=== PATIENT | male | born 1985 | race Caucasian/White ===

== ENCOUNTER 2019-12-14 19:39 | Observation (INO) | payer OTHER, SELFPAY ==
--- NOTE | ~2019-12-14 | CT_ITS ---
EXAMINATION: CT abdomen pelvis w con DATE: 12/14/2019 20:16 INDICATION: Abdominal pain TECHNIQUE: Computed tomography (CT) of the abdomen and pelvis was performed with 100 mL Omnipaque-350 intravenous contrast. Automated exposure control and iterative reconstruction technique were employe d. The dose-length product was 357.52 mGy-cm. COMPARISON: None FINDINGS: Lung bases are clear. Heart size is normal. No pericardial or pleural effusion. A few small calcified gallstones at the dependent fundus of the otherwise normal-appearing gallbladder. No calcified stone s seen along the normal caliber common bile duct. There is however mild intrahepatic biliary ductal d ilation. Liver is otherwise normal. Spleen, pancreas, bilateral adrenal glands and kidneys are normal . No abnormal bowel wall thickening or obstruction. Appendix is normal. Bladder is normal. No free i ntraperitoneal gas or fluid. No pathologically enlarged abdominal or pelvic lymphadenopathy. Mild fernanda ateral hip osteoarthritis IMPRESSION: 1. Cholelithiasis with mild intrahepatic biliary ductal dilation but no stones identified in the norm al caliber common bile duct. Correlate with liver function tests and if clinically indicated could co nsider further evaluation with MRCP. Reviewed, dictated and finalized at location A. ECT MANAGER IMPRESSION: 1. Cholelithiasis with mild intrahepatic biliary ductal dilation but no stones identified in the normal caliber common bile duct. Correlate with liver functio n tests and if clinically indicated could consider further evaluation with MRCP .
--- NOTE | ~2019-12-14 | XR_ITS ---
EXAMINATION: XR chest 1V portable DATE: 12/14/2019 20:06 INDICATION: Epigastric pain TECHNIQUE: AP view of the chest was obtained. COMPARISON: None FINDINGS: The lungs are clear with no focal airspace opacities, pulmonary edema, pleural effusion or pneumothor ax. The cardiomediastinal silhouette is normal. Visualized bones and soft tissues are unremarkable. IMPRESSION: 1. Normal chest radiograph. Reviewed, dictated and finalized at location A. RINTENDENT DRILLING IMPRESSION: 1. Normal chest radiograph.
[2019-12-14 19:45] VITALS: BP 156/100; PULSE 65; RESP 20; TEMP 36.6; O2SAT 100
--- NOTE | 2019-12-14 19:47 | ECG_ITS ---
Measurements Intervals [place] Rate: 62 P: 20 IA: 166 QRS: 69 QRSD: 101 T: 44 QT: 376 QTc: 383 Interpretive Statements SINUS RHYTHM WITH SINUS ARRHYTHMIA ATRIAL PREMATURE COMPLEXES INCOMPLETE RIGHT BUNDLE BRANCH BLOCK BASELINE ARTIFACT- I, II, III, AVR, AVL, AVF, V1-V2 BORDERLINE ECG Electronically Signed On 12-18-2019 13:27:38 GOVERNMENT GUARD by Arik Cheatham D.O.
--- NOTE | 2019-12-14 19:52 | ED.ABDPAIN ---
HPI - Abdominal Pain General Chief Complaint: Abdominal Pain Stated Complaint: epigastric pain Time Seen by Provider: 12/14/19 19:48 Source: patient and RN notes reviewed Mode of arrival: ambulatory Limitations: no limitations History of Present Illness HPI narrative: Pt is a 34 y/o male who presents to the ED with c/o severe epigastric pain starting suddenly around 18:30 this evening. He notes that his pain was initially a 10/10, but states that his pain alleviated to a 5/10 for a short while before worsening again to a 10/10. Pt notes that nothing in particular seemed to alleviate or re-aggravate his pain. He currently denies any fever, nausea, vomiting, or diarrhea. Pt states that he hasn't taken any pain medications for his symptoms. MD elicited complaint: abdominal pain Onset (ago): hour(s) (1.5) Pain Consistency: colicky Location: epigastric Severity: severe Pain scale (0-10): 10 Exacerbating factors: nothing Relieving factors: nothing Associated symptoms: denies other symptoms Related Data Home Medications Medication Instructions Recorded Confirmed omeprazole 40 mg PO BID 12/14/19 Allergies Allergy/AdvReac Type Severity Reaction Status Date / Time doxycycline Allergy Rash Verified 12/14/19 19:49 Review of Systems Review of Systems: All systems reviewed & are unremarkable except as noted in HPI and below Constitutional: Constitutional: Denies fever(s) Gastrointestinal: Gastrointestinal: Reports abdominal pain (epigastric pain), Denies diarrhea, Denies nausea and Denies vomiting PMFSH Past Medical History Medical History Healthy male adult Surgical History Surgical History No significant past surgical history Social History Social History Smoking status: Never smoker Gender identity (if verbalized by the patient): Male Exam Narrative: Exam Narrative: APPEARANCE: Moderate distress from pain, diaphoretic HEENT: Normocephalic, atraumatic, OMM RESPIRATORY: No respiratory distress, clear to auscultation bilaterally with no rhonchi wheezing or rales CARDIOVASCULAR: RRR s murmur ABDOMINAL: Soft, nondistended, tender palpation epigastric right upper quadrant left upper quadrant, no tenderness right lower quadrant left lower quadrant, no rebound or guarding MUSCULOSKELETAl: Moves all extremities. No clubbing, cyanosis or edema. NEURO: Awake and alert. Following commands, speech normal, no focal deficits SKIN:: Warm, dry. Normal Color PSYCHIATRIC: Normal affect/mood Course Course Emergency Course: Discussed with Dr. Cunningham presentation work-up. Discussed CT results. At this time recommends admission with patient started on Zosyn will follow as inpatient Discussed Dr. Ron from general surgery presentation work-up. Agrees with consult at this time with patient start on Zosyn will follow as inpatient Discussed with Dr. Dumont presentation work-up he agrees with admission at this time Discussed with patient and family results of workup and diagnosis. Discussed need for admission. Patient and family understand and agree to current treatment plan Vital Signs Vital signs: Vital Signs Temperature 97.8 F 12/14/19 19:45 Pulse Rate 65 12/14/19 19:45 Respiratory Rate 20 12/14/19 19:45 Blood Pressure 156/100 H 12/14/19 19:45 Pulse Oximetry 100 12/14/19 19:45 Temperature 97.8 F 12/14/19 19:45 Pulse Rate 77 12/14/19 21:55 Respiratory Rate 18 12/14/19 21:55 Blood Pressure 156/98 H 12/14/19 21:55 Pulse Oximetry 98 12/14/19 21:55 MDM - Abdominal Pain Lab Data Result diagrams: 12/14/19 20:03 12/14/19 20:09 Labs: Lab Results 12/14/19 12/14/19 12/14/19 Range/Units 20:03 20:03 20:09 WBC 7.8 (4.5-10.0) K/mm3 RBC 5.16 (4.6-6.20) M/mm3 Hgb 16.6 (14.0-18.0) g/dL Hct 46.0 (42.0-5
[2019-12-14 20:08] LABS: Basophils Absolute Auto 0.1 K/mm3 (0.0-0.1); Basophils Percent Auto 0.8 % (0.2-1.2); Eosinophils Absolute Auto 0.4 K/mm3 (0-0.3); Eosinophils Percent Auto 4.6 % (0-4.4); Hemoglobin 16.6 g/dL (14.0-18.0); Immature Granulocyte Absolute 0.03 K/mm3 (0.00-0.031); Immature Granulocyte Percent A 0.4 % (0-0.5); Lymphocytes Absolute Auto 2.95 K/mm3 (0.9-3.2); Lymphocytes Percent Auto 37.9 % (18.3-44.2); Mean Corpuscular HGB Conc 36.1 g/dl (32-36); Mean Corpuscular Hemoglobin 32.2 pg (26-34); Mean Corpuscular Volume 89.1 fl (80-100); Mean Platelet Volume 9.7 fl (7.4-10.4); Monocytes Percent Auto 13.1 % (2.6-8.5); Neutrophils Absolute Auto 3.4 K/mm3 (1.3-6.7); Neutrophils Percent Auto 43.2 % (45.5-73.1); Platelet Count Result 297 k/mm3 (150-375); Red Blood Count 5.16 M/mm3 (4.6-6.20); Red Cell Distribution Width 11.8 % (11.5-14.5); White Blood Count 7.8 K/mm3 (4.5-10.0)
[2019-12-14 20:11] LABS: Blood Urea Nitrogen 10 mg/dL (8-26); Estimated Glomerular Filt Rate > 60
[2019-12-14] MEDS: ONDANSETRON INJ 4 MG/2 ML VIAL IV PUSH (20:18)
[2019-12-14] MEDS: LACTATED RINGERS 1,000 ML 999 ML IV CONT (20:18)
[2019-12-14] MEDS: MORPHINE SULFATE 4 MG/ML INJ IV PUSH ×2 (20:18→23:57)
[2019-12-14 20:22] LABS: Alanine Aminotransferase 52 U/L (4-50); Albumin Level 5.1 g/dL (3.5-5.1); Alkaline Phosphatase 91 U/L (38-126); Aspartate Amino Transferase 93 U/L (17-59); Bilirubin,Total 1.9 mg/dL (0.2-1.3); Blood Urea Nitrogen 11 mg/dL (9-20); Calcium 9.4 mg/dL (8.4-10.2); Carbon Dioxide 30 mmol/L (22-30); Chloride 100 mmol/L (98-107); Estimated Glomerular Filt Rate > 60; Glucose 117 mg/dL (75-110); Lipase 80 U/L (23-300); Potassium 3.9 mmol/L (3.4-5.0); Sodium 143 mmol/L (137-145)
[2019-12-14 20:33] LABS: Troponin I < 0.012 ng/mL (0.000-0.034)
[2019-12-14] MEDS: BELLADONNA ALK/PHENOB ELIX 10 ML, MAG HYDROX/ALUMINUM HYD/SIMETH 30 ML, LIDOCAINE HCL 2... PO (20:58)
[2019-12-14 21:29] LABS: Add Urine Microscopic? NO; Appearance Urine Clear (Clear); Bilirubin Urine Negative (Negative); Blood Urine Negative (Negative); Color Urine Straw (Yellow); Glucose Urine UA Negative (Negative); Ketones Urine Negative (Negative); Leukocyte Esterase Ur Negative LEU/UL (Negative); Nitrate Urine Negative (Negative); Protein Urine Negative (Negative); Specific Grav Ur 1.029 (1.001-1.035); Urobilinogen Urine Negative mg/dL (<2.0)
[2019-12-14 21:55] VITALS: BP 156/98; PULSE 77; RESP 18; O2SAT 98
--- NOTE | 2019-12-14 23:15 | ADMGEN ---
This patient, Jayden Benoit, was admitted to [facility] Surg Room 303-01. Patient/family oriented to hospital policies and general routines including ID bracelet, bed and alarms, visiting hours, pain management, procedures, bathroom and other care routines, personal items, smoking policy, room service/diet, and visiting hours. Valuables list has been completed. Information on how to activate the Rapid Response Team has been discussed. Patient/Family are encouraged to report perceived risks to care and to ask questions if they do not understand what they are told or what they should do.
[2019-12-14 23:21] VITALS: BMI 22.4
[2019-12-14 23:22] VITALS: BP 135/92; PULSE 58; RESP 18; TEMP 36.9; O2SAT 99
[2019-12-14] MEDS: LACTATED RINGERS 1,000 ML 125 ML IV CONT (23:26)
--- NOTE | 2019-12-14 23:45 | PM.IMHP ---
H&P: HPI History of Present Illness Chief complaint: epigastric pain that started tonight+ Narrative: This is a 34 year old male who presented to the hospital [facility] with a complaint of severe epigastric pain that started this evening around 6:30 pm. The patient's last meal was bout 4 hours previously and consisted of greasy food from the restaurant [employer]. The patient is known to have GERD and takes omeprazole daily and believed initially that his abdominal pain was GERD until it worsened and wouldn't go away. He denies any fever, chills, nausea, vomiting, chest pain, diarrhea or other symptoms. [facility] demonstrated cholelithiasis with mild intrahepatic biliary ductal dilation. General Surgery was consulted by ER provider and has asked that we admit the patient to the hospital for them and they will evaluat the patient in the morning. No other complaints. His pain has improved significantly with morphine. No other complaints. Review of Systems Review of Systems: All systems reviewed & are unremarkable except as noted in HPI and below PMFSH Past Medical History Medical History (Updated 12/15/19 @ 04:41 by Manoj Dumont MD) GERD (gastroesophageal reflux disease) Healthy male adult Hypothyroidism Surgical History Surgical History No significant past surgical history Family History Family History Father Hypertension Social History Social History Smoking status: Never smoker Alcohol intake: never Substance use: never Substance use type: does not use Gender identity (if verbalized by the patient): Male Spiritual care concerns: No Agree to blood products: Yes Meds Home Medications and Allergies Home Medications Medication Instructions Recorded Confirmed Type omeprazole 40 mg PO BID 12/14/19 12/15/19 History levothyroxine 100 mcg PO DAILY 12/15/19 12/15/19 History Allergies Allergy/AdvReac Type Severity Reaction Status Date / Time doxycycline Allergy Rash Verified 12/14/19 19:49 Vital Signs Vital Signs - 24 hr 12/14/19 19:45 12/14/19 21:55 12/14/19 23:22 Temperature 36.6 C 36.9 C Pulse Rate 65 77 58 L Respiratory Rate 20 18 18 Blood Pressure 156/100 H 156/98 H 135/92 H Pulse Oximetry 100 98 99 Exam Const: General: cooperative, healthy appearing, no acute distress, alert and awake Nutritional Appearance: well nourished Orientation/consciousness: patient oriented x3 HENMT: Head: normal to inspection General nose exam: Normal external nose present Face and sinus: normal facial exam Mouth: Yes Normal oral and palatal mucosa present and Yes oropharynx normal Eyes: Pupils: Equal, round and reactive pupils present EOM: EOMs intact bilaterally Neck: Neck: supple and no JVD Thyroid: thyroid normal Lymphatic: lymphadenopathy not noted Resp: Effort & Inspection: normal respiratory effort Auscultation: clear to auscultation bilaterally Cardio: Rate: regular rate Rhythm: regular rhythm Heart sounds: no murmurs GI: Inspection: normal to inspection GI Palp: Yes abdominal tenderness (Epigastric++ ) Auscultation: normal bowel sounds Skin: General skin exam: normal color and no rashes or lesions noted Neuro: General: patient oriented x3 Cranial nerves: Yes CN's II-XII intact bilaterally and Yes Equal, round and reactive pupils present Speech: normal speech Motor exam (neuro): 5/5 motor strength present throughout Sensory Exam: normal sensation Extrem: General: normal to inspection and no edema Psych: Mental Status: mental status grossly normal Affect: normal affect H&P: Results Labs Labs: Short CBC 12/14/19 Range/Units 20:03 WBC 7.8 (4.5-10.0) K/mm3 Hgb 16.6 (14.0-18.0) g/dL Hct 46.0 (42.0-52.0) % Plt Count 297 (150-375) k/mm3 BMP
[2019-12-15 06:00] VITALS: BP 120/69; PULSE 57; RESP 16; TEMP 36.4; O2SAT 100
--- NOTE | 2019-12-15 07:39 | PM.CNGS ---
Assessment and Plan Assessment and plan (1) Dilated intrahepatic bile duct: Code(s): K83.8 - Other specified diseases of biliary tract Status: Acute Assessment and Plan: Discussed with Dr. Cunningham. Since patient's liver function tests are improved will cancel HIDA scan and plan to let patient try liquids. If he does well consider discharge and I have tentatively set him up for outpatient laparoscopic cholecystectomy with possible cholangiogram for Monday12/17/2019. Would probably repeat liver function tests as he returns that day and do cholangiogram if they are more elevated. (2) Cholelithiasis: Onset Date: Unknown Code(s): K80.20 - Calculus of gallbladder without cholecystitis without obstruction Status: Acute Assessment and Plan: Appears to have small calcified stones in the gallbladder. Since there was no stranding around the gallbladder and no gallbladder wall thickening on CT, I suspect that he does not have acute cholecystitis, but rather is passing small stones in view of the dilated common bile duct. He is now pain-free so we will plan to semi urgently to proceed to surgical intervention for removal of his gallbladder. Will plan to repeat liver function tests the day of surgery and if they are elevated consider intraoperative cholangiogram to prove whether not there are any gallstones present within the bile duct. I have discussed this thoroughly with the patient. Risks, benefits, possible complications including bleeding, infection, possible injury to surrounding organs, possible need for open cholecystectomy, have been discussed with the patient and he seems understand wished to proceed. (3) Transaminitis: Code(s): R74.0 - Nonspecific elevation of levels of transaminase and lactic acid dehydrogenase [LDH] Status: Acute Assessment and Plan: Most likely secondary to passage of small gallstones through the distal common bile duct and sphincter of Oddi. (4) GERD (gastroesophageal reflux disease): Qualifiers: Esophagitis presence: esophagitis presence not specified Qualified Code(s): K21.9 - Gastro-esophageal reflux disease without esophagitis Code(s): K21.9 - Gastro-esophageal reflux disease without esophagitis Status: Chronic Assessment and Plan: Longstanding, patient knows he had and this new pain feels different than what he has had the last 2 episodes overnight. He is chronically on Prilosec & will continue this. Should probably see Dr. Cunningham and consider upper GI endoscopy as an outpatient after he recovers from his laparoscopic cholecystectomy. (5) Hypothyroidism: Code(s): E03.9 - Hypothyroidism, unspecified Status: Chronic Assessment and Plan: On medication and has had stable follow-up labs 1 year ago. History of Present Illness Consult details Consult date: 12/15/19 Reason for consult: gallstones Narrative: This is a 34 year old White male who presented to the hospital last night with a complaint of severe epigastric pain that started last evening around 6:30 pm. The patient's last meal was bout 4 hours previously and consisted of greasy food from the restaurant [employer] . The patient is known to have GERD and takes omeprazole daily and believed initially that his abdominal pain was GERD until it worsened and wouldn't go away. He denies any fever, chills, nausea, vomiting, chest pain, diarrhea or other symptoms. Abd/Pelvic CT was performed in the ER and demonstrated cholelithiasis without GB wall thickening or surrounding stranding, but with mild intrahepatic biliary ductal dilation. It was also note the the LFT's were elevated on his lab work. GI was first consulted and the I was also contatcted by the ER provider. The Hospitalist admited the patient to the hospital. Further labs were ordered and GI will evaluate the patient this morning for possible MRCP to check for CBD stones. No other complaints. Hi
--- NOTE | 2019-12-15 07:39 | WPDGICN ---
Assessment and Plan Additional Plan This is a 34-year-old white male patient I am asked to see at the request of the emergency room. Patient has a long history of GE reflux. Has been on proton pump inhibitor use regularly since 2016. Last evening developed significant epigastric pressure. Became very intense prompting him to go to the emergency room. He had recurrent pain after admission the hospital approximately midnight last night. He states this pain is quite different from previous GE reflux symptoms. It is more of a pressure pain rather than a burning pain. Not related to diet or intake. In the emergency room CT scan suggested gallstones. LFTs were modestly elevated last evening. Past medical history is significant for GE reflux disease. In 2016 he had a food impaction that passed spontaneously. He has never had an EGD. Since that time he has been maintained on omeprazole fairly regularly perhaps every other day. He denies any weight loss or bleeding. Usually has a good response to this medication. Last evening at it made no difference in his pain. Family history noncontributory. Medications include omeprazole. And levothyroxine. No stated drug allergies. Physical exam reveals the patient currently to be alert. Vital signs stable. HEENT exam unremarkable. He is anicteric. Lungs are clear to auscultation and percussion. Heart is without murmur or extra sounds. Abdominal exam bowel sounds are present soft nontender with no organomegaly. CT scan reveals gallstones. LFTs total bilirubin 1.9, AST 92, ALT 52, alk-phos 91 CBC within normal limits. Urinalysis with no bilirubin. Impression 1. Epigastric pain. 2. Elevated LFTs. Suspect this is from septum and gallstones. Plan is for surgery consultation. HIDA scan will be obtained. LFTs will be repeated. If they rise in MRCP may be required. Anticipate eventual cholecystectomy. I would defer ERCP unless MRCP is abnormal. 3. Cholelithiasis. Identified by CT scan. I suspect this is most likely etiology for his discomfort. 4. GERD. This appears to be chronic. He has a history of a food impaction in the plastic. He continues to require proton pump inhibitors regularly plan is for elective outpatient EGD. Plan is initially for HIDA scan and surgery consult. Anticipate cholecystectomy per their direction. LFTs will be monitored. Outpatient EGD to assess GE reflux disease anticipated. We will continue proton pump inhibitor. GI Consult Note Consult date/time: 12/15/19 07:39 HPI: Jayden Benoit is a 34 year old male [facility] Past Medical History Medical History (Updated 12/15/19 @ 04:41 by Manoj Dumont MD) GERD (gastroesophageal reflux disease) Healthy male adult Hypothyroidism Surgical History Surgical History No significant past surgical history Family History Family History Father Hypertension Social History Social History Smoking status: Never smoker Alcohol intake: never Substance use: never Substance use type: does not use Gender identity (if verbalized by the patient): Male Spiritual care concerns: No Agree to blood products: Yes Meds Home Medications and Allergies Home Medications Medication Instructions Recorded Confirmed Type omeprazole 40 mg PO BID 12/14/19 12/15/19 History levothyroxine 100 mcg PO DAILY 12/15/19 12/15/19 History Allergies Allergy/AdvReac Type Severity Reaction Status Date / Time doxycycline Allergy Rash Verified 12/14/19 19:49 Vital Signs Vital Signs - 24 hr 12/14/19 19:45 12/14/19 21:55 12/14/19 23:22 Temperature 36.6 C 36.9 C Pulse Rate 65 77 58 L Respiratory Rate 20 18 18 Blood Pressure 156/100 H 156/98 H 135/92 H Pulse Oximetry 100 98 99 12/15/19 06:00 Temperature 36.4 C Pulse Rate 57 L Re
[2019-12-15 08:10] LABS: Basophils Percent Auto 0.7 % (0.2-1.2); Eosinophils Absolute Auto 0.3 K/mm3 (0-0.3); Eosinophils Percent Auto 4.2 % (0-4.4); Hematocrit 40.5 % (42.0-52.0); Hemoglobin 14.5 g/dL (14.0-18.0); Immature Granulocyte Absolute 0.02 K/mm3 (0.00-0.031); Immature Granulocyte Percent A 0.3 % (0-0.5); Lymphocytes Absolute Auto 1.32 K/mm3 (0.9-3.2); Lymphocytes Percent Auto 21.9 % (18.3-44.2); Mean Corpuscular HGB Conc 35.8 g/dl (32-36); Mean Corpuscular Volume 89.4 fl (80-100); Mean Platelet Volume 9.5 fl (7.4-10.4); Monocytes Absolute Auto 0.9 K/mm3 (0.1-0.6); Monocytes Percent Auto 14.8 % (2.6-8.5); Neutrophils Absolute Auto 3.5 K/mm3 (1.3-6.7); Neutrophils Percent Auto 58.1 % (45.5-73.1); Platelet Count Result 226 k/mm3 (150-375); Red Blood Count 4.53 M/mm3 (4.6-6.20); Red Cell Distribution Width 11.9 % (11.5-14.5)
[2019-12-15 08:17] LABS: Alanine Aminotransferase 105 U/L (4-50); Albumin Level 3.9 g/dL (3.5-5.1); Alkaline Phosphatase 84 U/L (38-126); Aspartate Amino Transferase 94 U/L (17-59); Bilirubin,Total 1.6 mg/dL (0.2-1.3)
[2019-12-15 08:18] LABS: Alanine Aminotransferase 106 U/L (4-50); Albumin Level 3.9 g/dL (3.5-5.1); Alkaline Phosphatase 82 U/L (38-126); Aspartate Amino Transferase 92 U/L (17-59); Bilirubin,Total 1.6 mg/dL (0.2-1.3); Blood Urea Nitrogen 9 mg/dL (9-20); Calcium 8.7 mg/dL (8.4-10.2); Carbon Dioxide 30 mmol/L (22-30); Chloride 104 mmol/L (98-107); Estimated CRCL calculation 149 ml/min; Estimated Glomerular Filt Rate > 60; Glucose 89 mg/dL (75-110); Lipase 61 U/L (23-300); Potassium 4.1 mmol/L (3.4-5.0); Sodium 139 mmol/L (137-145)
[2019-12-15] MEDS: LACTATED RINGERS 1,000 ML 125 ML IV CONT (08:48)
--- NOTE | 2019-12-15 18:54 | PM.DS ---
DS: Diagnosis Admitting Diagnosis Admitting Diagnosis: Calculus of gallbladder without cholecystitis without obstruction Discharge Diagnosis (1) Cholelithiasis: Onset Date: Unknown Code(s): K80.20 - Calculus of gallbladder without cholecystitis without obstruction Status: Acute Assessment and Plan: Date of Service 12/15/19 Mr. Benoit is a 34yo M with history of GERD and hypothyroidism who presented to the ED for evaluation of abrupt onset epigastric pain. CT abdomen showed cholelithiasis with mild intrahepatic biliary ductal dilation, no stones identified on CT. GI and General Surgery were consulted. His pain was intermittent but would last for a few hours. He was kept overnight for observation. AST, ALT, and bilirubin were elevated and felt to be secondary to cholelithiasis. His pain was improved the following morning. Discussed case with Dr Ron who planned for discharge and outpatient surgery already scheduled for Monday12/17/19. He tolerated a clear liquid diet and was hemodynamically stable for discharge 12/15/19. Consultations: General Surgery - Dr Ron GI - Dr Cunningham (2) Transaminitis: Code(s): R74.0 - Nonspecific elevation of levels of transaminase and lactic acid dehydrogenase [LDH] Status: Acute Assessment and Plan: Cholestatic pattern of transaminitis likely secondary to acute cholelithiasis. Monitor LFTs outpatient. (3) Dilated intrahepatic bile duct: Code(s): K83.8 - Other specified diseases of biliary tract Status: Acute Assessment and Plan: See above. (4) Hypothyroidism: Code(s): E03.9 - Hypothyroidism, unspecified Status: Chronic Assessment and Plan: Maintained on home levothyroxine. (5) GERD (gastroesophageal reflux disease): Qualifiers: Esophagitis presence: esophagitis presence not specified Qualified Code(s): K21.9 - Gastro-esophageal reflux disease without esophagitis Code(s): K21.9 - Gastro-esophageal reflux disease without esophagitis Status: Chronic Assessment and Plan: Maintained on Protonix. DS: Summary Time Spent with Patient Time attestation: Total time spent providing and/or coordinating discharge services: 35 minutes Exam Narrative: Exam Narrative: General: Male resting supine in bed in no acute distress. HEENT: Normocephalic, EOMI, oral mucosa moist. Cardiovascular: Rate and rhythm are regular. Respiratory: Lungs clear to auscultation all [place]. Non-labored breathing. Abdomen: Soft, mild epigastric tenderness to palpation without guarding, non-distended, bowel sounds present. Extremities: Peripheral pulses intact. No edema, erythema, or pain to palpation. Neuro: No focal neurological deficits. Speech is clear. DS: Data Data Completed and Pending Labs on day of discharge: Labs from last 24 hours 12/15/19 12/15/19 12/15/19 07:59 07:59 07:59 WBC 6.0 RBC 4.53 L Hgb 14.5 Hct 40.5 L MCV 89.4 MCH 32.0 MCHC 35.8 RDW 11.9 Plt Count 226 MPV 9.5 Immature Gran % (Auto) 0.3 Neut % (Auto) 58.1 Lymph % (Auto) 21.9 [place] % (Auto) 14.8 H Eos % (Auto) 4.2 Baso % (Auto) 0.7 Lymph # (Auto) 1.32 [place] # (Auto) 0.9 H Eos # (Auto) 0.3 Baso # (Auto) 0.0 Abs Immat Gran (auto) 0.02 Absolute Neuts (auto) 3.5 Absolute Nucleated RBC 0.0 Nucleated RBC % 0.0 Sodium 139 Potassium 4.1 Chloride 104 Carbon Dioxide 30 BUN 9 Creatinine 0.70 Estim Creat Clear Calc 149 Estimated GFR > 60 Glucose 89 Calcium 8.7 Total Bilirubin 1.6 H 1.6 H Direct Bilirubin 0.0 AST 94 H 92 H ALT 105 H 106 H Alkaline Phosphatase 84 82 Troponin I Total Protein 7.0 7.0 Albumin 3.9 3.9 Lipase 61 Urine Color Urine Appearance Urine pH Ur Specific [place] Urine Protein Urine Glucose (UA) Ur
== END 2019-12-15 12:40 | disposition home or self-care (01) ==
LOC: ANHED 22:40 → ANH3MEDSUR 22:44
PROVIDERS: Internal Medicine Gastroenterology; Admitting Provider Family Medicine; Emergency Provider Emergency Medicine; Visit Provider Family Medicine
DX: K80.20 Calculus of gallbladder without cholecystitis without obstruction (principal); K83.8 Other specified diseases of biliary tract; R74.0 Nonspecific elevation of levels of transaminase and lactic acid dehydrogenase [LDH]; K21.9 Gastro-esophageal reflux disease without esophagitis; E03.9 Hypothyroidism, unspecified
CPT/HCPCS: 36415; 71045; 74177; 80053; 80076; 81003; 82248; 83690; 84484; 85025; 93005; 96361; 96365; 96374; 96375; 96376; 99285; A9270; G0378; J0131; J2270; J2405; J2543; J7120; Q9967

== ENCOUNTER 2019-12-17 00:44 | Day surgery (SDC) | payer OTHER, SELFPAY ==
[2019-12-16 08:47] VITALS: BMI 22.5
[2019-12-17] VITALS (8 sets, daily range): BP systolic 110–133; BP diastolic 57–88; PULSE 54–75; RESP 14–18; TEMP 36.9–37.3; O2SAT 94–100
--- NOTE | ~2019-12-17 | XR_ITS ---
EXAMINATION: XR cholangiogram surg 1st inj EXAM DATE: 12/18/2019 06:36 INDICATION: Cholecystectomy. TECHNIQUE: Multiples Cine fluoroscopic images were obtained during injection of the cystic duct duri ng laparoscopic cholecystectomy. Procedure performed by Dr. Carlos Eduardo Ron MD on 12/18/2019 06:3 6. The DAP for this procedure was 1.6 mGym2. FINDINGS: The cystic duct has been injected. There are 3 or 4 small filling defects identified with in the cystic duct, could be gas bubbles or possibly choledocholithiasis. No obstructing stones. Mild common and proper hepatic duct dilation. Forward flow of contrast confirmed into the duodenum. Cont rast extravasation is most likely from the injection site. IMPRESSION: Several small cystic duct filling defects, stones or gas bubbles. Mild bile duct dilation . Reviewed, dictated and finalized at location A. 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 M ild bile duct dilation.
[2019-12-17] MEDS: LACTATED RINGERS 1,000 ML 30 ML IV CONT ×2 (11:45→15:44)
--- NOTE | 2019-12-17 11:58 | WPDANESEPPF ---
Anes - Initial Pre Proc Eval Procedure: Operation Date: 12/17/19 13:00 Proposed Procedures p Laparoscopic Cholecystectomy, Possible Intra Operative Cholangiograms, Possible Open - Carlos Eduardo Ron MD Date/Time: 12/17/19 11:58 Surgeon: Carlos Eduardo Ron MD Pre Op Diagnosis: cholelithiasis Patient Data Age: 34 Gender: M Height: 1.93 m Weight: 84 kg Allergies Allergy/AdvReac Type Severity Reaction Status Date / Time doxycycline Allergy Rash Verified 12/16/19 08:36 Home Medications Medication Instructions Recorded Confirmed Type omeprazole 20 mg PO BID 12/14/19 12/16/19 History hydrocodone-acetaminophen [[place]] 1 tablet PO Q6H PRN #10 tablet 12/15/19 12/16/19 Rx levothyroxine 100 mcg PO DAILY 12/15/19 12/16/19 History Laboratory Tests 12/17/19 11:38 Total Bilirubin Pending Direct Bilirubin Pending AST Pending ALT Pending Alkaline Phosphatase Pending Total Protein Pending Albumin Pending Amylase Pending Lipase Pending Patient hx anesthesia problems: none Family hx anesthesia problems: none PMFSH Past Medical History Medical History (Updated 12/15/19 @ 07:46 by Carlos Eduardo Ron MD) GERD (gastroesophageal reflux disease) Healthy male adult Hypothyroidism Surgical History Surgical History (Updated 12/15/19 @ 12:25 by Carlos Eduardo Ron MD) No significant past surgical history tonsilectomy,2017 Social History Social History Smoking status: Never smoker Alcohol intake: never Substance use: never Substance use type: does not use Gender identity (if verbalized by the patient): Male Spiritual care concerns: No Agree to blood products: Yes Anes - Eval Final PreProcedure Day of Procedure 12/17/19 11:58 Patient weight: normal Heart: regular rate and rhythm Lungs: clear to auscultation and normal air movement Airway: Mallampati scale class 1 Neurological: alert and oriented Last oral intake: >/= 8 hours ASA classification: II Emergent: no Anesthetic plan: proceed Anesthesia type and monitoring: general ETT and standard monitoring Informed Consent: The patient's anesthetic plan and its attendant risks and benefits were discussed with the patient/family/POA. Questions were solicited and answers provided to the satisfaction of the patient/family/POA.
--- NOTE | 2019-12-17 12:00 | SUR.PREOP ---
1110-STATES NO CHANGE SINCE INTERVIEW.
[2019-12-17 12:10] LABS: Alanine Aminotransferase 62 U/L (4-50); Albumin Level 4.5 g/dL (3.5-5.1); Alkaline Phosphatase 79 U/L (38-126); Amylase 68 U/L (30-110); Aspartate Amino Transferase 28 U/L (17-59); Bilirubin,Total 1.6 mg/dL (0.2-1.3); Lipase 49 U/L (23-300)
--- NOTE | 2019-12-17 12:51 | WPDHPUPDATE1 ---
History and Physical Update Update Date/Time: 12/17/19 12:51 History and Physical has been reviewed, including an updated exam of the patient. There are changes in the patient's condition as reflected in his discharge note from 12/15/2019. He went home this weekend has had no further episodes of pain or upper abdominal pain since he went home. Risks, benefits, and alternatives of a laparoscopic cholecystectomy with intraoperative cholangiogram possible open cholecystectomy have been discussed and questions answered. Patient agrees to proceed with procedure.
[2019-12-17] MEDS: ceFAZolin 2 GM/D5W 50 ML 2 GM/50 ML BAG IVPB (13:50)
[2019-12-17] MEDS: BUPIVACAINE/EPINEPHRINE 0.5% 30 ML VIAL 17 ML INFILTRATE (14:06)
[2019-12-17] MEDS: KETOROLAC 30 MG/ML VIAL (*BKC) IV PUSH (15:15)
--- NOTE | 2019-12-17 15:32 | P.OP_ITS ---
Procedure Note - Detailed Date of procedure: 12/17/19 Pre-op diagnosis: cholelithiasis 1. Cholelithiasis with cholecystitis 2. Possible choledocholithiasis by CT on 12/13/2019. Post-op diagnosis: same Procedure performed: Laparoscopic cholecystectomy with intraoperative cholangiogram. Description of procedure: Procedure Details: Patient was seen preoperatively in the holding area and risks, benefits and alternatives confirmed. Patient was taken to the operating room and general anesthesia was induced. A time out was then preformed with the surgery team confirming patient and site of surgery. The abdomen was prepped and draped in the usual sterile fashion. Incision was made just below the umbilicus. Two stay sutures of O- Vicryl were used to elevate the mid-line fascia beneath the umbilicus and a small incision was made under direct vision. The peritoneum was entered. The 12 mm Reyes cannula was introduced under direct vision. First under low flow and then under high flow the abdomen was insufflated with carbon dioxide never exceeding a pressure of 14. Three 5 mm trocars were then introduced under direct vision. The following trocars were introduced under direct vision: a 5 mm in the epigastrium and two 5 mm trocars along the right costal margin. Minor adhesions near the triangle of Calot were taken down with scissors and then the triangle was carefully dissected to expose the cystic duct and cystic artery. The gall bladder was grasped and the cystic duct and artery were dissected free and clipped with an 5 mm endo-clip chief ultrasound technologist. A small hole was made in the cystic duct with endoshears and a cholagio-cath introduced. A cholangiogram was obtained revealing free flow into the cystic duct, common bile duct, common hepatic, right and left hepatic ducts with free flow into the duodenum with no filling defects in the intra nor extrahepatic biliary tree and no dilation. It did appear that were there were some remaining very small filling defects in the cystic duct between where I clipped it and where it entered the top of the common duct. These did not move during the injection of the dye. The catheter was removed and the cystic duct was clipped with a 5 mm endoclip-chief ultrasound technologist. The cystic duct was then transected. The cystic artery was also transected at this point. The gall bladder was removed using electrocautery and then removed using a large 10 mm grasper via the umbilical incision. The trocars were removed visualizing hemostasis and the remaining gas evacuated. The large trocar site at the umbilicus was closed with an 0 vicryl figure of 8 suture. The 2 stay sutures mentioned above on either side of the fascia were also tied together to help approximate this midline fascia. Further local anesthetic was placed into each incision for postop pain control. The skin incisions were closed with a subcuticular of 4-0 Monocryl. Surgical glue then was applied to all the incisions. Patient tolerated the procedure well was taken to the recovery room in good co ndition. Anesthesia: GETA Surgeon: Carlos Eduardo Ron MD Estimated blood loss (mL): 10 Drains: No Packing: No Pathology: yes (The gallbladder) Complications: No immediate complications Condition: stable Disposition: PACU Findings: 1. Minor inflammatory he shins on the lower portion of the gallbladder 2. A few small filling defects in the distal cystic duct on cholangiogram with no stones in the hepatic or common bile duct.
[2019-12-17] MEDS: ONDANSETRON INJ 4 MG/2 ML VIAL IV PUSH (16:16)
[2019-12-17] MEDS: SCOPOLAMINE 1.5 MG PATCH TRANSDERM (16:32)
== END 2019-12-17 17:50 | disposition home or self-care (01) ==
PROVIDERS: Visit Provider Surgery
PROC: 0FT44ZZ Resection of Gallbladder, Percutaneous Endoscopic Approach (ICD-10-PCS; CPT 47562; principal; 2019-12-17 13:00)
DX: K81.1 Chronic cholecystitis (principal); E03.9 Hypothyroidism, unspecified; K21.9 Gastro-esophageal reflux disease without esophagitis
CPT/HCPCS: 47563; 36415; 74300; 80076; 82150; 83690; 88304; A9270; J0131; J0330; J0690; J1100; J1170; J1200; J1885; J2250; J2405; J2704; J3010; J7120; Q9966

== ENCOUNTER 2019-12-27 09:00 | Outpatient (CLI) | payer OTHER, SELFPAY ==
[2019-12-27 09:44] LABS: Alanine Aminotransferase 29 U/L (4-50); Albumin Level 4.5 g/dL (3.5-5.1); Alkaline Phosphatase 72 U/L (38-126); Aspartate Amino Transferase 23 U/L (17-59); Bilirubin,Total 1.2 mg/dL (0.2-1.3)
== END 2019-12-27 09:01 | disposition home or self-care (01) ==
PROVIDERS: Visit Provider Nurse Practitioner Family
DX: K83.8 Other specified diseases of biliary tract (principal)
CPT/HCPCS: 36415; 80076